=== PATIENT | male | born 1970 | race Caucasian/White ===

== ENCOUNTER 2018-08-18 02:45 | Emergency (ER) | payer OTHER ==
[~2018-08-18] VITALS: Ht 172.7 cm; Wt 86.4 kg
[~2018-08-18 02:45] MED LIST: NOCURR
[2018-08-18] MEDS ORDERED: AMLO-511 PO (03:14)
[2018-08-18] MEDS ORDERED: FLUT16H NASAL (03:14)
[2018-08-18] MEDS ORDERED: MONT10TA21 PO (03:14)
[2018-08-18] MEDS ORDERED: HYDR25TA PO (03:14)
[2018-08-18] MEDS ORDERED: GABA-531 PO (03:14)
[2018-08-18] MEDS ORDERED: ALBU8.5H8 IH (03:14)
[2018-08-18] MEDS ORDERED: LISI-662 PO (03:14)
[2018-08-18] MEDS ORDERED: BECL10.62 IH (03:14)
[2018-08-18] MEDS ORDERED: RANI150T7 PO (03:14)
[2018-08-18] MEDS ORDERED: CloNIDine HCL 0.2 MG TABLET PO ONE (03:45)
[2018-08-18] MEDS ORDERED: IPRATROPIUM BROMIDE 0.5 MG/2.5 ML NEB SOLUTION NEB ONE (04:00)
[2018-08-18] MEDS ORDERED: ALBUTEROL SULFATE 2.5 MG/0.5 ML NEB SOLUTION NEB ONE (04:00)
[2018-08-18 04:41] VITALS: BP 146/84
== END 2018-08-18 04:47 | disposition home or self-care (01) ==
LOC: EMS 02:45
DX: J98.01 Acute bronchospasm (principal); J40 Bronchitis, not specified as acute or chronic; J45.909 Unspecified asthma, uncomplicated; E78.00 Pure hypercholesterolemia, unspecified; I10 Essential (primary) hypertension; Z79.899 Other long term (current) drug therapy
CPT/HCPCS: 94640

== ENCOUNTER 2022-05-21 06:44 | Inpatient (IN) | payer OTHER ==
[~2022-05-21] VITALS: Ht 170.2 cm; Wt 82.5 kg
[~2022-05-21 06:44] MED LIST changes: +ALBU8.5H8 IH; +AMLO-257 PO; +BECL10.62 IH; +FLUT16H NASAL; +GABA-1181 PO; +HYDR25TA2 PO; +LISI-894 PO; +MONT-35 PO; -NOCURR; +RANI150T7 PO
[2022-05-21 08:53] LABS: BASOPHILS % (AUTO) 0.4 % (0.0-2.0); EOSINOPHILS % (AUTO) 0.9 % (1.0-6.0); HEMATOCRIT 38.8 % (41-53); HEMOGLOBIN 13.3 g/dL (13.5-17.5); LYMPHOCYTES # (AUTO) 1.5 K/uL (1.0-4.8); LYMPHOCYTES % (AUTO) 18.7 % (22.0-44.0); MEAN CORPUSCULAR HEMOGLOBIN 28.9 pg (26.0-34.0); MEAN CORPUSCULAR HGB CONC 34.2 G/dL (31.0-37.0); MEAN CORPUSCULAR VOLUME 85 fL (80-100); MONOCYTES # (AUTO) 0.9 K/uL (0.1-1.0); MONOCYTES % (AUTO) 11.6 % (2.0-9.0); NEUTROPHILS # (AUTO) 5.5 K/uL (1.8-7.7); NEUTROPHILS % (AUTO) 68.4 % (40.0-70.0); PLATELET COUNT (AUTO) 266 K/uL (150-450); RED BLOOD CELL COUNT(AUTO) 4.59 MIL/uL (4.50-5.90); RED CELL DISTRIBUTION WIDTH 13.1 % (11.5-14.5)
[2022-05-21 08:56] LABS: ALANINE AMINOTRANSFERASE 21 U/L (12-78); ALBUMIN 3.4 g/dL (3.4-5.0); ALKALINE PHOSPHATASE 87 U/L (46-116); ANION GAP 8 mmol/L (8-16); ASPARTATE AMINOTRANSFERASE 21 U/L (15-37); BILIRUBIN,TOTAL 1.1 mg/dL (0.1-1.0); CALCIUM, TOTAL 8.5 mg/dL (8.8-10.5); CARBON DIOXIDE 29 mmol/L (22-29); CHLORIDE 102 mmol/L (98-107); CREATININE 1.24 mg/dL (0.60-1.30); GLUCOSE,RANDOM 99 mg/dL (70-110); LIPASE 72 U/L (73-393); SODIUM SERUM 139 mmol/L (136-145); TOTAL PROTEIN, SERUM 7.3 g/dL (6.4-8.2); UREA NITROGEN, BLOOD 11 mg/dL (7-18)
[2022-05-21 08:58] LABS: GLOMERULAR FILTR. RATE CALC > 60 mL/min (>60); POTASSIUM 2.5 mmol/L (3.5-5.1)
[2022-05-21 09:03] LABS: COVID AG,FIA SOURCE NASOPHARYNGEAL
[2022-05-21] MEDS ORDERED: IOHEXOL 350 MG/ML 75 ML VIAL ONE ×2 (09:17→09:18)
[2022-05-21] MEDS ORDERED: SODIUM CHLORIDE 0.9% 100 ML ONE (09:18)
[2022-05-21] MEDS ORDERED: MORPHINE SULFATE 4 MG/ML SYRINGE IVP ONE ×2 (09:30→10:30)
[2022-05-21 09:50] LABS: APPEARANCE,URINE CLEAR (CLEAR); BILIRUBIN,URINE NEGATIVE (NEGATIVE); GLUCOSE, URINE (UA) NEGATIVE (NEGATIVE); KETONES,URINE NEGATIVE (NEGATIVE); LEUKOCYTE ESTERASE ,URINE NEGATIVE (NEGATIVE); NITRATE,URINE NEGATIVE (NEGATIVE); OCCULT BLOOD,URINE NEGATIVE (NEGATIVE); PH,URINE 6.5 (5.0-8.0); PROTEIN,URINE 30-70 mg/dL (NEGATIVE); SPECIFIC GRAVITIY, URINE 1.019 (1.003-1.030); UROBILINOGEN,URINE <=1.0 mg/dL (<=1.0)
[2022-05-21 10:18] LABS: BACTERIA,URINE None Seen /HPF (None Seen); RBC,URINE None Seen /HPF (0-2); SQUAMOUS EPITHELIAL CELL,UR Few /LPF (None Seen); WBC,URINE None Seen /HPF (0-5)
[2022-05-21] MEDS: POTASSIUM CHL 10 MEQ/WATER 50 ML IV SCH ×2 (10:27→11:30)
[2022-05-21 11:47] LABS: PROTHROMBIN TIME 10.3 SEC (9.4-11.6)
[2022-05-21] MEDS ORDERED: ASPIRIN 81 MG CHEWABLE TABLET PO ONE (12:15)
[2022-05-21] MEDS ORDERED: ONDANSETRON HCL 4 MG/2 ML VIAL IVP PRN ×2 (12:30→17:15)
[2022-05-21] MEDS ORDERED: POTASSIUM CHLORIDE 20 MEQ ER TABLET PO ONE (12:30)
[2022-05-21] MEDS ORDERED: ACETAMINOPHEN 325 MG TABLET PO PRN ×2 (12:30→17:15)
[2022-05-21] MEDS ORDERED: 0.9% SODIUM CHLORIDE 10 ML SYRINGE IVP PRN (12:30)
[2022-05-21] MEDS ORDERED: MAGNESIUM HYDROXIDE SUSPENSION 30 ML UDCUP PO PRN (17:15)
[2022-05-21] MEDS ORDERED: HydrALAZINE HCL 20 MG/ML VIAL IVP PRN (17:15)
[2022-05-21] MEDS ORDERED: MORPHINE SULFATE 2 MG/ML SYRINGE IVP PRN (17:15)
[2022-05-21] MEDS ORDERED: ZOLPIDEM TARTRATE 5 MG TABLET PO PRN (17:15)
[2022-05-21] MEDS ORDERED: BISACODYL 10 MG RECTAL RECTAL SUPPOSITORY PR PRN (17:15)
[2022-05-21 17:42] VITALS: BP 181/118
[2022-05-21 20:02] VITALS: BP 152/109
[2022-05-21] MEDS: DOCUSATE SODIUM 100 MG CAPSULE PO SCH (20:17)
[2022-05-21] MEDS: FAMOTIDINE 20 MG TABLET PO SCH (20:17)
[2022-05-21] MEDS: GABAPENTIN 300 MG CAPSULE PO SCH (20:17)
[2022-05-21] MEDS: ALBUTEROL SULFATE HFA 90 MCG/PUFF 8 GM INHALER IH SCH (20:34)
[2022-05-21] MEDS: FLUTICASONE PROPIONATE 50 MCG/SPRAY 16 GM NASAL SPRAY NASAL SCH (20:34)
[2022-05-21] MEDS: BECLOMETHASONE DIPR HFA 80 MCG/PUFF 10.6 GM INHALER IH SCH (20:35)
[2022-05-21] MEDS: HEPARIN SODIUM,PORCINE 5,000 UNITS/ML VIAL SQ SCH (23:41)
[2022-05-22] VITALS (7 sets, daily range): BP systolic 145–164; BP diastolic 84–103
[2022-05-22 06:07] LABS: BASOPHILS % (AUTO) 0.6 % (0.0-2.0); EOSINOPHILS % (AUTO) 0.9 % (1.0-6.0); HEMATOCRIT 37.4 % (41-53); HEMOGLOBIN 12.8 g/dL (13.5-17.5); LYMPHOCYTES # (AUTO) 1.9 K/uL (1.0-4.8); MEAN CORPUSCULAR HGB CONC 34.3 G/dL (31.0-37.0); MEAN CORPUSCULAR VOLUME 85 fL (80-100); MONOCYTES # (AUTO) 0.9 K/uL (0.1-1.0); MONOCYTES % (AUTO) 12.4 % (2.0-9.0); NEUTROPHILS # (AUTO) 4.4 K/uL (1.8-7.7); NEUTROPHILS % (AUTO) 60.1 % (40.0-70.0); PLATELET COUNT (AUTO) 265 K/uL (150-450); RED BLOOD CELL COUNT(AUTO) 4.42 MIL/uL (4.50-5.90); RED CELL DISTRIBUTION WIDTH 13.2 % (11.5-14.5)
[2022-05-22 06:17] LABS: ANION GAP 9 mmol/L (8-16); CALCIUM, TOTAL 8.7 mg/dL (8.8-10.5); CARBON DIOXIDE 29 mmol/L (22-29); CHLORIDE 103 mmol/L (98-107); CREATININE 1.08 mg/dL (0.60-1.30); GLUCOSE,RANDOM 96 mg/dL (70-110); SODIUM SERUM 141 mmol/L (136-145); UREA NITROGEN, BLOOD 12 mg/dL (7-18)
[2022-05-22 06:21] LABS: GLOMERULAR FILTR. RATE CALC > 60 mL/min (>60)
[2022-05-22 06:22] LABS: POTASSIUM 2.9 mmol/L (3.5-5.1)
[2022-05-22] MEDS ORDERED: SODIUM CHLORIDE 0.9% 250 ML IV ONE ×3 (06:45→10:06)
[2022-05-22] MEDS: POTASSIUM CHL 10 MEQ/WATER 50 ML IV PRN ×4 (06:53→11:52)
[2022-05-22] MEDS: HEPARIN SODIUM,PORCINE 5,000 UNITS/ML VIAL SQ SCH ×4 (08:26→23:41)
[2022-05-22] MEDS: MONTELUKAST SODIUM 10 MG TABLET PO SCH (08:26)
[2022-05-22] MEDS: DOCUSATE SODIUM 100 MG CAPSULE PO SCH ×2 (08:27→20:17)
[2022-05-22] MEDS: PANTOPRAZOLE SODIUM 40 MG DR TABLET PO SCH (08:27)
[2022-05-22] MEDS: FAMOTIDINE 20 MG TABLET PO SCH ×2 (08:27→20:17)
[2022-05-22] MEDS: GABAPENTIN 300 MG CAPSULE PO SCH ×3 (08:28→20:17)
[2022-05-22] MEDS: ALBUTEROL SULFATE HFA 90 MCG/PUFF 8 GM INHALER IH SCH ×3 (08:29→20:18)
[2022-05-22] MEDS: BECLOMETHASONE DIPR HFA 80 MCG/PUFF 10.6 GM INHALER IH SCH ×2 (08:29→20:17)
[2022-05-22] MEDS: FLUTICASONE PROPIONATE 50 MCG/SPRAY 16 GM NASAL SPRAY NASAL SCH ×2 (08:30→20:18)
[2022-05-22] MEDS: HYDROCHLOROTHIAZIDE 25 MG TABLET PO SCH (08:33)
[2022-05-22] MEDS ORDERED: AmLODIPine BESYLATE 5 MG TABLET PO SCH ×2 (09:00→13:00)
[2022-05-22] MEDS ORDERED: LISINOPRIL 20 MG TABLET PO SCH (09:00)
[2022-05-22 13:04] LABS: MAGNESIUM 2.2 mg/dL (1.80-2.40); POTASSIUM 3.7 mmol/L (3.5-5.1)
[2022-05-22] MEDS ORDERED: TraMADol HCL 50 MG TABLET PO PRN (14:15)
[2022-05-22] MEDS ORDERED: CHLO25TA3 PO (17:03)
[2022-05-22] MEDS ORDERED: AMLO10TA55 PO (17:03)
[2022-05-22] MEDS: ASPIRIN 81 MG DR TABLET PO SCH (18:16)
[2022-05-23 04:19] VITALS: BP 159/93
[2022-05-23 06:22] LABS: BASOPHILS % (AUTO) 0.6 % (0.0-2.0); EOSINOPHILS % (AUTO) 0.6 % (1.0-6.0); HEMATOCRIT 38.8 % (41-53); HEMOGLOBIN 13.3 g/dL (13.5-17.5); LYMPHOCYTES # (AUTO) 1.7 K/uL (1.0-4.8); LYMPHOCYTES % (AUTO) 19.7 % (22.0-44.0); MEAN CORPUSCULAR HEMOGLOBIN 28.9 pg (26.0-34.0); MEAN CORPUSCULAR HGB CONC 34.3 G/dL (31.0-37.0); MEAN CORPUSCULAR VOLUME 84 fL (80-100); MONOCYTES # (AUTO) 0.9 K/uL (0.1-1.0); MONOCYTES % (AUTO) 10.1 % (2.0-9.0); PLATELET COUNT (AUTO) 276 K/uL (150-450); RED CELL DISTRIBUTION WIDTH 13.4 % (11.5-14.5)
[2022-05-23 06:43] LABS: ANION GAP 8 mmol/L (8-16); CALCIUM, TOTAL 9.2 mg/dL (8.8-10.5); CARBON DIOXIDE 32 mmol/L (22-29); CHLORIDE 100 mmol/L (98-107); CHOL/HDL RATIO 2.8 (4.2-7.3); CHOLESTEROL 160 mg/dL (131-200); CREATININE 1.11 mg/dL (0.60-1.30); GLUCOSE,RANDOM 97 mg/dL (70-110); HDL CHOLESTEROL 57 mg/dL (40-60); LDL CHOL (CALC.) 75 mg/dL (0-130); SODIUM SERUM 140 mmol/L (136-145); TRIGLYCERIDES 142 mg/dL (15-150); UREA NITROGEN, BLOOD 16 mg/dL (7-18)
[2022-05-23 06:44] LABS: GLOMERULAR FILTR. RATE CALC > 60 mL/min (>60)
[2022-05-23 06:53] LABS: B-TYPE NATRIURETIC PEPTIDE 265 pg/mL (0-100)
[2022-05-23 07:29] VITALS: BP 151/98
[2022-05-23] MEDS: HEPARIN SODIUM,PORCINE 5,000 UNITS/ML VIAL SQ SCH ×2 (08:26→16:58)
[2022-05-23] MEDS: BECLOMETHASONE DIPR HFA 80 MCG/PUFF 10.6 GM INHALER IH SCH ×2 (08:27→20:52)
[2022-05-23] MEDS: DOCUSATE SODIUM 100 MG CAPSULE PO SCH ×2 (08:27→20:49)
[2022-05-23] MEDS: FLUTICASONE PROPIONATE 50 MCG/SPRAY 16 GM NASAL SPRAY NASAL SCH ×2 (08:27→20:54)
[2022-05-23] MEDS: ALBUTEROL SULFATE HFA 90 MCG/PUFF 8 GM INHALER IH SCH ×3 (08:27→20:53)
[2022-05-23] MEDS: ASPIRIN 81 MG DR TABLET PO SCH (08:28)
[2022-05-23] MEDS: GABAPENTIN 300 MG CAPSULE PO SCH ×3 (08:28→20:49)
[2022-05-23] MEDS: METOPROLOL SUCCINATE 25 MG ER TABLET PO SCH (08:28)
[2022-05-23] MEDS: FAMOTIDINE 20 MG TABLET PO SCH ×2 (08:28→20:49)
[2022-05-23] MEDS: MONTELUKAST SODIUM 10 MG TABLET PO SCH (08:28)
[2022-05-23] MEDS: PANTOPRAZOLE SODIUM 40 MG DR TABLET PO SCH (08:28)
[2022-05-23] MEDS: AmLODIPine BESYLATE 10 MG TABLET PO SCH (08:28)
[2022-05-23] MEDS: LISINOPRIL 20 MG TABLET PO SCH (08:29)
[2022-05-23] MEDS: POTASSIUM CHLORIDE 20 MEQ ER TABLET PO PRN (08:30)
[2022-05-23] MEDS: HYDROCHLOROTHIAZIDE 25 MG TABLET PO SCH (08:30)
[2022-05-23] MEDS ORDERED: SESTAMIBI TC99M/UD ISOTOPE 1 EA INJ INJ ONE ×2 (09:05→11:30)
[2022-05-23 11:00] VITALS: BP 146/89
[2022-05-23 15:47] VITALS: BP 157/97
[2022-05-23] MEDS: HYDROCODONE/ACETAMINOPHEN 5-325 MG TABLET PO PRN (16:58)
[2022-05-23 19:46] VITALS: BP 141/93
[2022-05-24] VITALS (9 sets, daily range): BP systolic 144–162; BP diastolic 91–109
[2022-05-24] MEDS: HEPARIN SODIUM,PORCINE 5,000 UNITS/ML VIAL SQ SCH ×4 (00:06→23:48)
[2022-05-24] MEDS: POTASSIUM CHLORIDE 20 MEQ ER TABLET PO PRN (01:54)
[2022-05-24 06:15] LABS: ANION GAP 11 mmol/L (8-16); CALCIUM, TOTAL 9.3 mg/dL (8.8-10.5); CARBON DIOXIDE 27 mmol/L (22-29); CHLORIDE 102 mmol/L (98-107); CREATININE 1.16 mg/dL (0.60-1.30); GLOMERULAR FILTR. RATE CALC > 60 mL/min (>60); GLUCOSE,RANDOM 97 mg/dL (70-110); POTASSIUM 3.6 mmol/L (3.5-5.1); SODIUM SERUM 140 mmol/L (136-145); UREA NITROGEN, BLOOD 19 mg/dL (7-18)
[2022-05-24 06:21] LABS: BASOPHILS % (AUTO) 0.4 % (0.0-2.0); HEMATOCRIT 38.6 % (41-53); LYMPHOCYTES # (AUTO) 2.1 K/uL (1.0-4.8); MEAN CORPUSCULAR HEMOGLOBIN 28.8 pg (26.0-34.0); MEAN CORPUSCULAR HGB CONC 33.8 G/dL (31.0-37.0); MEAN CORPUSCULAR VOLUME 85 fL (80-100); MONOCYTES % (AUTO) 10.9 % (2.0-9.0); NEUTROPHILS # (AUTO) 5.8 K/uL (1.8-7.7); NEUTROPHILS % (AUTO) 64.7 % (40.0-70.0); PLATELET COUNT (AUTO) 273 K/uL (150-450); RED BLOOD CELL COUNT(AUTO) 4.53 MIL/uL (4.50-5.90); RED CELL DISTRIBUTION WIDTH 13.2 % (11.5-14.5)
[2022-05-24] MEDS ORDERED: REGADENOSON 0.4 MG/5 ML PF SYRINGE IVP ONE (08:00)
[2022-05-24] MEDS: FAMOTIDINE 20 MG TABLET PO SCH ×2 (08:26→20:19)
[2022-05-24] MEDS: FLUTICASONE PROPIONATE 50 MCG/SPRAY 16 GM NASAL SPRAY NASAL SCH ×2 (08:27→20:19)
[2022-05-24] MEDS: BECLOMETHASONE DIPR HFA 80 MCG/PUFF 10.6 GM INHALER IH SCH ×2 (08:27→20:19)
[2022-05-24] MEDS: MONTELUKAST SODIUM 10 MG TABLET PO SCH (08:27)
[2022-05-24] MEDS: DOCUSATE SODIUM 100 MG CAPSULE PO SCH ×2 (08:27→20:19)
[2022-05-24] MEDS: GABAPENTIN 300 MG CAPSULE PO SCH ×3 (08:27→20:19)
[2022-05-24] MEDS: ALBUTEROL SULFATE HFA 90 MCG/PUFF 8 GM INHALER IH SCH ×3 (08:27→20:19)
[2022-05-24] MEDS: AmLODIPine BESYLATE 10 MG TABLET PO SCH (08:27)
[2022-05-24] MEDS: LISINOPRIL 20 MG TABLET PO SCH (08:27)
[2022-05-24] MEDS: METOPROLOL SUCCINATE 25 MG ER TABLET PO SCH (08:28)
[2022-05-24] MEDS: PANTOPRAZOLE SODIUM 40 MG DR TABLET PO SCH (08:28)
[2022-05-24] MEDS: HYDROCODONE/ACETAMINOPHEN 5-325 MG TABLET PO PRN ×2 (08:28→12:53)
[2022-05-24] MEDS: ASPIRIN 81 MG DR TABLET PO SCH (08:28)
[2022-05-24] MEDS: HYDROCHLOROTHIAZIDE 25 MG TABLET PO SCH (08:28)
[2022-05-24] MEDS ORDERED: LISI-894 PO (11:54)
[2022-05-24] MEDS ORDERED: HYDR25TA PO (11:54)
[2022-05-24] MEDS ORDERED: AMLO-258 PO (11:54)
[2022-05-24] MEDS ORDERED: ASPI-1444 PO (11:54)
[2022-05-24] MEDS ORDERED: METO-391 PO (11:54)
[2022-05-25] VITALS (12 sets, daily range): BP systolic 131–181; BP diastolic 83–115
[2022-05-25] MEDS: FLUTICASONE PROPIONATE 50 MCG/SPRAY 16 GM NASAL SPRAY NASAL SCH (07:34)
[2022-05-25] MEDS: BECLOMETHASONE DIPR HFA 80 MCG/PUFF 10.6 GM INHALER IH SCH (07:34)
[2022-05-25] MEDS: ALBUTEROL SULFATE HFA 90 MCG/PUFF 8 GM INHALER IH SCH (07:34)
[2022-05-25] MEDS: HEPARIN SODIUM,PORCINE 5,000 UNITS/ML VIAL SQ SCH (08:00)
[2022-05-25] MEDS: AmLODIPine BESYLATE 10 MG TABLET PO SCH (08:53)
[2022-05-25] MEDS: LISINOPRIL 20 MG TABLET PO SCH (08:53)
[2022-05-25] MEDS ORDERED: METOPROLOL SUCCINATE 50 MG ER TABLET PO SCH (09:00)
[2022-05-25] MEDS: FAMOTIDINE 20 MG TABLET PO SCH ×2 (09:00→11:19)
[2022-05-25] MEDS ORDERED: VERAPAMIL HCL 2.5 MG/ML 2 ML VIAL ONE (09:52)
[2022-05-25] MEDS ORDERED: SODIUM BICARBONATE 50 MEQ/50 ML VIAL ONE (09:53)
[2022-05-25] MEDS ORDERED: IOHEXOL 350 MG/ML 100 ML VIAL ONE (09:53)
[2022-05-25] MEDS ORDERED: LIDOCAINE/PF 1% 30 ML VIAL ONE (09:53)
[2022-05-25] MEDS ORDERED: NITROGLYCERIN 50 MG/D5% WATER 250 ML ONE (09:53)
[2022-05-25] MEDS ORDERED: MIDAZOLAM HCL 2 MG/2 ML VIAL ONE ×2 (10:12→10:20)
[2022-05-25] MEDS ORDERED: FentaNYL CITRATE PF 100 MCG/2 ML VIAL ONE ×2 (10:12→10:20)
[2022-05-25] MEDS ORDERED: LIDOCAINE 1% 30 ML/SOD BICARB 8.4% 4 ML SQ ONE (10:30)
[2022-05-25] MEDS ORDERED: IOHEXOL 350 MG/ML 100 ML VIAL IARTER ONE (10:30)
[2022-05-25] MEDS ORDERED: FentaNYL CITRATE PF 100 MCG/2 ML VIAL IVP ONE (10:30)
[2022-05-25] MEDS ORDERED: MIDAZOLAM HCL 2 MG/2 ML VIAL IVP ONE (10:30)
[2022-05-25] MEDS ORDERED: HEPARIN SODIUM 1000 UNITS/NS 1,000 ML IARTER ONE (10:30)
[2022-05-25] MEDS ORDERED: HEPARIN SODIUM,PORCINE 1,000 UNITS/ML 10 ML VIAL IARTER ONE (10:45)
[2022-05-25] MEDS ORDERED: NITROGLYCERIN/D5W 50 MG/250 ML IV BOTTLE IARTER ONE (10:45)
[2022-05-25] MEDS ORDERED: VERAPAMIL HCL 2.5 MG/ML 2 ML VIAL IARTER ONE (10:45)
[2022-05-25] MEDS: PANTOPRAZOLE SODIUM 40 MG DR TABLET PO SCH (11:19)
[2022-05-25] MEDS: DOCUSATE SODIUM 100 MG CAPSULE PO SCH (11:19)
[2022-05-25] MEDS: MONTELUKAST SODIUM 10 MG TABLET PO SCH (11:20)
[2022-05-25] MEDS: GABAPENTIN 300 MG CAPSULE PO SCH (11:20)
[2022-05-25] MEDS: HYDROCHLOROTHIAZIDE 25 MG TABLET PO SCH (11:20)
[2022-05-25] MEDS: ASPIRIN 81 MG DR TABLET PO SCH (11:20)
[2022-05-26] MEDS ORDERED: METOPROLOL SUCCINATE 25 MG ER TABLET PO SCH (09:00)
[2022-05-26 16:06] LABS: ALDOSTERONE SERUM 4.3 ng/dL (0.0-30.0)
[2022-05-29 07:06] LABS: ALDOSTERONE/RENIN RATIO 7.5 (0.0-30.0)
== END 2022-05-25 15:55 | disposition home or self-care (01) | DRG 192 ==
LOC: EMS 06:47 → 5S 16:47
PROVIDERS: ADMIT Internal Medicine; ATTEND Internal Medicine
PROC: 4A023N7 Measurement of Cardiac Sampling and Pressure, Left Heart, Percutaneous Approach (ICD-10-PCS; principal; 2022-05-25)
PROC: B2111ZZ Fluoroscopy of Multiple Coronary Arteries using Low Osmolar Contrast (ICD-10-PCS; 2022-05-25)
DX: I16.0 Hypertensive urgency (principal); D73.5 Infarction of spleen; E78.00 Pure hypercholesterolemia, unspecified; E87.6 Hypokalemia; Z20.822 Contact with and (suspected) exposure to COVID-19; J45.909 Unspecified asthma, uncomplicated; I10 Essential (primary) hypertension; Z79.82 Long term (current) use of aspirin
CPT/HCPCS: 71045; 71260; 72193; 74160; 78452; 80048; 80053; 80061; 81001; 82088; 83690; 83735; 83880; 84132; 84244; 84484; 85025; 85610; 85730; 93005; 93306; 99291; A9500; J0360; J1644; J2250; J2270; J2405; J3010; J3480; J3490; J3535; J7050; Q9967; 36415-L1; 36415-TC; Z7610

== ENCOUNTER 2022-10-09 04:26 | Inpatient (IN) | payer OTHER ==
[~2022-10-09] VITALS: Ht 175.3 cm; Wt 81.8 kg
[~2022-10-09 04:26] MED LIST changes: -AMLO-257 PO; +AMLO-258 PO; +ASPI-1444 PO; -FLUT16H NASAL; +FLUT16SP NASAL; +HYDR25TA PO; -HYDR25TA2 PO; +METO-391 PO; -RANI150T7 PO
[2022-10-09] MEDS ORDERED: MORPHINE SULFATE 2 MG/ML SYRINGE IVP ONE (04:45)
[2022-10-09 05:03] LABS: COVID AG,FIA SOURCE NASOPHARYNGEAL
[2022-10-09 05:07] LABS: BASOPHILS % (AUTO) 0.7 % (0.0-2.0); HEMATOCRIT 38.6 % (41-53); LYMPHOCYTES # (AUTO) 2.1 K/uL (1.0-4.8); LYMPHOCYTES % (AUTO) 28.6 % (22.0-44.0); MEAN CORPUSCULAR HEMOGLOBIN 28.7 pg (26.0-34.0); MEAN CORPUSCULAR HGB CONC 33.6 G/dL (31.0-37.0); MEAN CORPUSCULAR VOLUME 85 fL (80-100); MONOCYTES # (AUTO) 0.7 K/uL (0.1-1.0); MONOCYTES % (AUTO) 9.6 % (2.0-9.0); NEUTROPHILS # (AUTO) 4.4 K/uL (1.8-7.7); NEUTROPHILS % (AUTO) 60.1 % (40.0-70.0); PLATELET COUNT (AUTO) 296 K/uL (150-450); RED BLOOD CELL COUNT(AUTO) 4.52 MIL/uL (4.50-5.90); RED CELL DISTRIBUTION WIDTH 13.5 % (11.5-14.5)
[2022-10-09] MEDS ORDERED: LABETALOL HCL 5 MG/ML 20 ML VIAL IVP ONE ×2 (05:15→06:30)
[2022-10-09 05:16] LABS: ANION GAP 12 mmol/L (8-16); CALCIUM, TOTAL 8.6 mg/dL (8.8-10.5); CARBON DIOXIDE 27 mmol/L (22-29); CHLORIDE 103 mmol/L (98-107); CREATININE 1.48 mg/dL (0.60-1.30); GLUCOSE,RANDOM 102 mg/dL (70-110); SODIUM SERUM 142 mmol/L (136-145); UREA NITROGEN, BLOOD 20 mg/dL (7-18)
[2022-10-09 05:17] LABS: GLOMERULAR FILTR. RATE CALC 50 mL/min (>60)
[2022-10-09 05:20] LABS: PROTHROMBIN TIME 10.4 SEC (9.4-11.6)
[2022-10-09 05:30] LABS: ALANINE AMINOTRANSFERASE 22 U/L (12-78); ALBUMIN 3.5 g/dL (3.4-5.0); ALKALINE PHOSPHATASE 91 U/L (46-116); ASPARTATE AMINOTRANSFERASE 18 U/L (15-37); BILIRUBIN,TOTAL 0.5 mg/dL (0.1-1.0); CREATINE KINASE, TOTAL ONLY 103 U/L (39-308); LIPASE 119 U/L (73-393); PHOSPHORUS 3.2 mg/dL (2.5-4.9); TOTAL PROTEIN, SERUM 7.1 g/dL (6.4-8.2)
[2022-10-09 05:34] LABS: LACTIC ACID 2.1 mmol/L (0.4-2.0)
[2022-10-09 05:37] LABS: B-TYPE NATRIURETIC PEPTIDE 335 pg/mL (0-100)
[2022-10-09] MEDS ORDERED: IOHEXOL 350 MG/ML 100 ML VIAL ONE (05:42)
[2022-10-09] MEDS ORDERED: SODIUM CHLORIDE 0.9% 100 ML ONE (05:42)
[2022-10-09] MEDS ORDERED: POTASSIUM CHLORIDE 20 MEQ ER TABLET PO ONE (05:45)
[2022-10-09] MEDS ORDERED: HYDROCHLOROTHIAZIDE 25 MG TABLET PO ONE ×2 (06:30→14:45)
[2022-10-09] MEDS ORDERED: LISINOPRIL 10 MG TABLET PO ONE (06:30)
[2022-10-09 06:55] LABS: APPEARANCE,URINE CLEAR (CLEAR); BILIRUBIN,URINE NEGATIVE (NEGATIVE); GLUCOSE, URINE (UA) NEGATIVE (NEGATIVE); KETONES,URINE NEGATIVE (NEGATIVE); LEUKOCYTE ESTERASE ,URINE NEGATIVE (NEGATIVE); NITRATE,URINE NEGATIVE (NEGATIVE); OCCULT BLOOD,URINE NEGATIVE (NEGATIVE); PH,URINE 6.5 (5.0-8.0); PROTEIN,URINE TRACE mg/dL (NEGATIVE); UROBILINOGEN,URINE <=1.0 mg/dL (<=1.0)
[2022-10-09 06:59] LABS: AMPHET/METH SCREEN,URINE NEGATIVE (NEGATIVE); BARBITURATE SCREEN, URINE NEGATIVE (NEGATIVE); BENZODIAZEPINES SCREEN,URINE NEGATIVE (NEGATIVE); CANNABINOID SCREEN,URINE NEGATIVE (NEGATIVE); COCAINE SCREEN,URINE NEGATIVE (NEGATIVE); METHADONE SCREEN, URINE NEGATIVE (NEGATIVE); OPIATE SCREEN,URINE POSITIVE (NEGATIVE); PHENCYCLIDINE SCREEN,URINE NEGATIVE (NEGATIVE)
[2022-10-09] MEDS ORDERED: MORPHINE SULFATE 4 MG/ML SYRINGE IVP ONE (09:00)
[2022-10-09] MEDS ORDERED: SODIUM CHLORIDE 0.9% 500 ML IV ONE (14:30)
[2022-10-09] MEDS ORDERED: KETOROLAC TROMETHAMINE 30 MG/ML VIAL IVP ONE (14:30)
[2022-10-09] MEDS ORDERED: FentaNYL CITRATE PF 100 MCG/2 ML VIAL IVP ONE (14:45)
[2022-10-09] MEDS ORDERED: NITROPRUSSIDE SODIUM 50 MG in DEXTROSE 5%-WATER 248 ML IV PRN (14:45)
[2022-10-09] MEDS ORDERED: POTASSIUM CHLORIDE 10 MEQ ER TABLET PO ONE (15:15)
[2022-10-09] MEDS ORDERED: ACETAMINOPHEN 325 MG TABLET PO PRN (15:15)
[2022-10-09] MEDS ORDERED: CloNIDine HCL 0.1 MG TABLET PO PRN (15:15)
[2022-10-09] MEDS ORDERED: ONDANSETRON HCL 4 MG/2 ML VIAL IVP PRN (15:15)
[2022-10-09] MEDS: AmLODIPine BESYLATE 10 MG TABLET PO SCH (15:47)
[2022-10-09] MEDS ORDERED: HEPARIN SODIUM,PORCINE 5,000 UNITS/ML VIAL SQ SCH (16:00)
[2022-10-09] MEDS ORDERED: HEPARIN SODIUM,PORCINE 5,000 UNITS/ML VIAL IVP PRN ×2 (16:45)
[2022-10-09] MEDS ORDERED: HEPARIN SODIUM,PORCINE 5,000 UNITS/ML VIAL IVP ONE ×2 (16:45→17:00)
[2022-10-09] MEDS ORDERED: HEPARIN SODIUM 25000 UNITS/D5W 250 ML IV PRN (16:45)
[2022-10-09] MEDS ORDERED: CARVEDILOL 6.25 MG TABLET PO ONE (17:00)
[2022-10-09 17:07] LABS: BASOPHILS % (AUTO) 0.5 % (0.0-2.0); EOSINOPHILS % (AUTO) 0.5 % (1.0-6.0); HEMATOCRIT 38.4 % (41-53); HEMOGLOBIN 12.9 g/dL (13.5-17.5); LYMPHOCYTES # (AUTO) 1.6 K/uL (1.0-4.8); LYMPHOCYTES % (AUTO) 14.3 % (22.0-44.0); MEAN CORPUSCULAR HEMOGLOBIN 28.9 pg (26.0-34.0); MEAN CORPUSCULAR HGB CONC 33.5 G/dL (31.0-37.0); MEAN CORPUSCULAR VOLUME 86 fL (80-100); MONOCYTES % (AUTO) 8.3 % (2.0-9.0); NEUTROPHILS # (AUTO) 8.8 K/uL (1.8-7.7); NEUTROPHILS % (AUTO) 76.4 % (40.0-70.0); PLATELET COUNT (AUTO) 276 K/uL (150-450); RED BLOOD CELL COUNT(AUTO) 4.45 MIL/uL (4.50-5.90); RED CELL DISTRIBUTION WIDTH 13.6 % (11.5-14.5)
[2022-10-09 17:23] LABS: PROTHROMBIN TIME 10.9 SEC (9.4-11.6)
[2022-10-09] MEDS: LOSARTAN POTASSIUM 50 MG TABLET PO SCH (20:13)
[2022-10-09] MEDS: DOCUSATE SODIUM 100 MG CAPSULE PO SCH (20:13)
[2022-10-09] MEDS: OxyCODONE HCL/ACETAMINOPHEN 5-325 MG TABLET PO PRN (20:13)
[2022-10-09] MEDS ORDERED: HYDROmorphone HCL 2 MG/ML SYRINGE IVP ONE (23:00)
[2022-10-10] MEDS ORDERED: HYDROmorphone HCL 2 MG/ML SYRINGE IVP PRN (01:00)
[2022-10-10 05:27] LABS: BASOPHILS % (AUTO) 0.8 % (0.0-2.0); HEMATOCRIT 39.3 % (41-53); HEMOGLOBIN 13.2 g/dL (13.5-17.5); LYMPHOCYTES # (AUTO) 2.3 K/uL (1.0-4.8); LYMPHOCYTES % (AUTO) 25.1 % (22.0-44.0); MEAN CORPUSCULAR HGB CONC 33.5 G/dL (31.0-37.0); MEAN CORPUSCULAR VOLUME 86 fL (80-100); MONOCYTES # (AUTO) 0.9 K/uL (0.1-1.0); MONOCYTES % (AUTO) 10.2 % (2.0-9.0); NEUTROPHILS # (AUTO) 5.7 K/uL (1.8-7.7); NEUTROPHILS % (AUTO) 62.9 % (40.0-70.0); PLATELET COUNT (AUTO) 278 K/uL (150-450); RED BLOOD CELL COUNT(AUTO) 4.55 MIL/uL (4.50-5.90); RED CELL DISTRIBUTION WIDTH 13.9 % (11.5-14.5)
[2022-10-10 05:38] LABS: ANION GAP 8 mmol/L (8-16); CALCIUM, TOTAL 9.2 mg/dL (8.8-10.5); CARBON DIOXIDE 30 mmol/L (22-29); CHLORIDE 101 mmol/L (98-107); CREATININE 1.24 mg/dL (0.60-1.30); GLUCOSE,RANDOM 104 mg/dL (70-110); POTASSIUM 3.1 mmol/L (3.5-5.1); SODIUM SERUM 139 mmol/L (136-145); UREA NITROGEN, BLOOD 19 mg/dL (7-18)
[2022-10-10 05:39] LABS: GLOMERULAR FILTR. RATE CALC > 60 mL/min (>60)
[2022-10-10] MEDS ORDERED: HEPARIN SODIUM 25000 UNITS/D5W 250 ML IV PRN (06:30)
[2022-10-10] MEDS ORDERED: HEPARIN SODIUM,PORCINE 5,000 UNITS/ML VIAL IVP PRN ×2 (06:30)
[2022-10-10] MEDS ORDERED: POTASSIUM CHLORIDE 20 MEQ ER TABLET PO ONE (07:00)
[2022-10-10] MEDS: OxyCODONE HCL/ACETAMINOPHEN 5-325 MG TABLET PO PRN (07:30)
[2022-10-10] MEDS ORDERED: ASPIRIN 81 MG CHEWABLE TABLET PO SCH (09:00)
[2022-10-10] MEDS ORDERED: FAMOTIDINE 20 MG TABLET PO SCH (09:00)
[2022-10-10] MEDS: AmLODIPine BESYLATE 10 MG TABLET PO SCH (09:10)
[2022-10-10] MEDS: LOSARTAN POTASSIUM 50 MG TABLET PO SCH (09:10)
[2022-10-10] MEDS: DOCUSATE SODIUM 100 MG CAPSULE PO SCH (09:11)
[2022-10-10 10:34] VITALS: BP 154/102
[2022-10-10] MEDS ORDERED: LOSARTAN POTASSIUM 25 MG TABLET PO ONE (11:00)
== END 2022-10-10 11:25 | disposition left against medical advice (07) | DRG 199 ==
LOC: EMS 04:27 → AHU 10-10 07:58
PROVIDERS: ADMIT Internal Medicine; ATTEND Internal Medicine
DX: I16.1 Hypertensive emergency (principal); N17.9 Acute kidney failure, unspecified; I50.20 Unspecified systolic (congestive) heart failure; E87.6 Hypokalemia; I11.0 Hypertensive heart disease with heart failure; E78.00 Pure hypercholesterolemia, unspecified; I48.91 Unspecified atrial fibrillation; Z20.822 Contact with and (suspected) exposure to COVID-19; J45.909 Unspecified asthma, uncomplicated; Z79.899 Other long term (current) drug therapy; Z79.82 Long term (current) use of aspirin
CPT/HCPCS: 71045; 74177; 80048; 80053; 81003; 82550; 83605; 83690; 83735; 83880; 84100; 84484; 85025; 85610; 85730; 93005; 99291; G0378; J1170; J1644; J1885; J2270; J3010; J3490; J7040; J7050; J7060; Q9967; 36415-L1; 36415-TC